=== PATIENT | female | born 1970 | race Caucasian/White ===

== ENCOUNTER 2019-12-26 14:35 | Emergency (ER) | payer OTHER, SELFPAY ==
[2019-12-26 14:41] VITALS: BP 130/88; PULSE 102; RESP 27; TEMP 36.8; O2SAT 92
--- NOTE | 2019-12-26 14:41 | ECG_ITS ---
Measurements Intervals [place] Rate: 105 P: 62 NE: 154 QRS: 54 QRSD: 92 T: 61 QT: 370 QTc: 490 Interpretive Statements SINUS TACHYCARDIA ABNORMAL ECG Electronically Signed On 12-26-2019 15:41:30 [employer]AFFING [employer]PERATIONS MANAGER by Adam Saini D.O.
--- NOTE | 2019-12-26 14:44 | ED.GENADULT ---
HPI - General Adult General Chief complaint: Unspecified <Leonidas Lopez PA-C - Last Filed: 12/26/19 16:58> Stated complaint: UNRESPONSIVE EPISODE <Leonidas Lopez PA-C - Last Filed: 12/26/19 16:58> Time Seen by Provider: 12/26/19 14:40 <Leonidas Lopez PA-C - Last Filed: 12/26/19 16:58> Source: patient and EMS <SUSHILA Wasserman Last Filed: 12/26/19 16:58> Mode of arrival: ambulatory <Leonidas Lopez PA-C - Last Filed: 12/26/19 16:58> Limitations: no limitations <Leonidas Lopez PA-C - Last Filed: 12/26/19 16:58> History of Present Illness HPI narrative: Patient is a 49-year-old female who presents to emergency department for evaluation of syncope that occurred while in a meeting this morning just prior to arrival EMS arrived was found to have pinpoint pupils Narcan was administered and the patient had a spontaneous return to normal mentation patient denies any narcotic use but notes that she did take 2 pills this morning that an individual gave her for her sinus symptoms that she has been having for the last several days patient on arrival to emergency department is resting comfortably in the room with no complaints resting comfortably denies similar occurrence in the past patient notes that she had been consuming alcohol last night but otherwise denies any known illicit drug use <Leonidas Lopez PA-C - Last Filed: 12/26/19 16:58> Related Data Allergies/adverse reactions: Allergies Allergy/AdvReac Type Severity Reaction Status Date / Time Penicillins Allergy Unknown Verified 12/26/19 14:46 shellfish derived Allergy Unknown Verified 12/26/19 14:46 <Leonidas Lopez PA-C - Last Filed: 12/26/19 16:58> Review of Systems Review of Systems: All systems reviewed & are unremarkable except as noted in HPI and below <Leonidas Lopez PA-C - Last Filed: 12/26/19 16:58> [facility] Surgical History Surgical History: Surgical History (Updated 12/26/19 @ 14:50 by Leonidas Lopez PA-C) H/O section <SUSHILA Wasserman Last Filed: 02/24/20 16:58> Social History Social History: Social History (Updated 12/26/19 @ 14:51 by Leonidas Lopez PA-C) Smoking status: Never smoker Alcohol intake: current Substance use type: marijuana Living arrangements: with family Occupation/Education: occupation Gender identity (if verbalized by the patient): Female <Leonidas Lopez PA-C - Last Filed: 12/26/19 16:58> Exam Narrative: Exam Narrative: GENERAL: Well-appearing, well-nourished, and in no acute distress. HEAD: Normocephalic, atraumatic. EYES: PERRLA and EOMI. ENT: Nares clear, no rhinorrhea or epistaxis. Mucous membranes moist. Oropharynx without tonsillar hypertrophy exudate or other lesions. NECK: Supple. No adenopathy or masses. CHEST: Clear to auscultation. No respiratory distress. No wheezes rales or rhonchi HEART: Regular rate and rhythm. No murmur heard. Normal peripheral pulses. ABDOMEN: Soft, nontender, nondistended EXTREMITIES: Normal range of motion. No edema. SKIN: Warm, dry, no rash. NEURO: No focal deficits. Alert and oriented x3. Cranial nerves II through XII grossly intact. Normal speech. PSYCH: Normal mood and affect. <Leonidas Lopez PA-C - Last Filed: 12/26/19 16:58> Course Course Emergency Course: Patient in the room in no distress aware of case findings treatment plan and diagnosis agreeing to follow-up as directed or to return if symptoms worsen or concerns Attempt was made to contact primary care with no call back <Leonidas Lopez PA-C - Last Filed: 12/26/19 16:58> Vital Signs Vital signs: Vital Signs Temperature 98.2 F 12/26/19 14:41 Pulse Rate 102 H 12/26/19 14:41 Respiratory Rate 27 H 12/26/19 14:41 Blood Pressure 130/88 12/26/19 14:41 Pulse Oximetry 92 12/26/19 14:41 Temperature 98.2 F 12/26/19 14:41 Pulse Rate 89 12/26/19 17:33 Respiratory Rate
[2019-12-26 14:46] VITALS: PULSE 112
[2019-12-26 14:56] VITALS: BP 124/94; PULSE 102; RESP 18; O2SAT 98
[2019-12-26 15:07] LABS: Basophils Absolute Auto 0.1 K/mm3 (0.0-0.1); Basophils Percent Auto 0.6 % (0.2-1.2); Eosinophils Absolute Auto 0.1 K/mm3 (0-0.3); Eosinophils Percent Auto 1.6 % (0-4.4); Hematocrit 37.5 % (37.0-47.0); Hemoglobin 12.7 g/dL (12.0-15.0); Immature Granulocyte Percent A 1.2 % (0-0.5); Lymphocytes Absolute Auto 1.38 K/mm3 (0.9-3.2); Lymphocytes Percent Auto 17.2 % (18.3-44.2); Mean Corpuscular HGB Conc 33.9 g/dl (32-36); Mean Corpuscular Hemoglobin 32.6 pg (26-34); Mean Corpuscular Volume 96.2 fl (80-100); Monocytes Absolute Auto 0.6 K/mm3 (0.1-0.6); Neutrophils Absolute Auto 5.8 K/mm3 (1.3-6.7); Neutrophils Percent Auto 72.4 % (45.5-73.1); Platelet Count Result 308 k/mm3 (150-375); Red Cell Distribution Width 12.6 % (11.5-14.5)
[2019-12-26] MEDS: Please add drug allergy info to patient profile. 1 EACH XX (15:08)
[2019-12-26] MEDS: SODIUM CHLORIDE 0.9% IV 1,000 ML 999 ML IV CONT (15:15)
[2019-12-26 15:19] LABS: Ethanol < 10 mg/dL (<10)
[2019-12-26 15:32] LABS: INR 0.9; Prothrombin Time 11.6 Seconds (11.1-14.7)
[2019-12-26 15:33] LABS: Partial Thromboplastin Time 27.1 SECONDS (22.3-36.8)
[2019-12-26 15:46] LABS: Add Urine Microscopic? YES; Appearance Urine Cloudy (Clear); Bacteria Urine Trace /hpf; Bilirubin Urine Negative (Negative); Blood Urine Negative (Negative); Color Urine Yellow (Yellow); Glucose Urine UA 3+ mg/dL (Negative); Ketones Urine Negative (Negative); Leukocyte Esterase Ur Negative LEU/UL (Negative); Mucus Urine Rare /lpf; Nitrate Urine Negative (Negative); Protein Urine 2+ mg/dL (Negative); Specific Grav Ur 1.014 (1.001-1.035); Squamous Epithelial Cell Urine Few /hpf (Few); Urobilinogen Urine Negative mg/dL (<2.0)
[2019-12-26 16:01] LABS: Amphetamine Screen Urine Positive (Negative); Barbiturate Screen Urine Negative (Negative); Benzodiazepines Screen Urine Negative (Negative); Cannabinoid Screen Urine Positive (Negative); Cocaine Screen Urine Negative (Negative); Methadone Screen Urine Negative (Negative); Opiate Screen Urine Negative (Negative); Phencyclidine Screen Urine Negative (Negative)
[2019-12-26 16:10] VITALS: BP 136/88; PULSE 102; RESP 18; O2SAT 94
[2019-12-26 16:10] LABS: Alanine Aminotransferase 24 U/L (4-35); Alkaline Phosphatase 137 U/L (38-126); Aspartate Amino Transferase 56 U/L (14-36); Bilirubin,Total 0.3 mg/dL (0.2-1.3); Lipase 107 U/L (23-300)
[2019-12-26 16:11] LABS: Blood Urea Nitrogen 11 mg/dL (7-17); Calcium 8.8 mg/dL (8.4-10.2); Carbon Dioxide 24 mmol/L (22-30); Chloride 99 mmol/L (98-107); Estimated CRCL calculation 87 ml/min; Estimated Glomerular Filt Rate > 60; Glucose 328 mg/dL (65-105); Potassium 3.3 mmol/L (3.4-5.0); Sodium 137 mmol/L (137-145)
[2019-12-26 16:22] LABS: Troponin I 0.021 ng/mL (0.000-0.034)
[2019-12-26 17:18] LABS: Hemoglobin A1C 7.6 % (<5.7)
[2019-12-26 17:33] VITALS: BP 131/98; PULSE 89; RESP 18; O2SAT 95
== END 2019-12-26 17:46 | disposition home or self-care (01) ==
PROVIDERS: Emergency Medicine Emergency Medical Services; Emergency Provider General Practice
DX: R55 Syncope and collapse (principal); R73.9 Hyperglycemia, unspecified
CPT/HCPCS: 36415; 80048; 80076; 80307; 81001; 83036; 83690; 84484; 85025; 85610; 85730; 87086; 87088; 93005; 99284; J7030